=== PATIENT | female | born 1940 | race Caucasian/White ===

== ENCOUNTER 2018-07-23 10:27 | Emergency (ER) | payer MEDICARE, BC, SELFPAY ==
[2018-07-23] VITALS (8 sets, daily range): BP systolic 100–165; BP diastolic 47–86; PULSE 80–98; RESP 14–18; TEMP 37.2–38.6; O2SAT 92–100
--- NOTE | 2018-07-23 11:19 | DI.RAD.S_ITS ---
PROCEDURE: XR CHEST 1V INDICATIONS: suspected sepsis TECHNIQUE: One view of the chest was acquired. COMPARISON: [facility], CHEST 2 VIEW, 11/21/2017, 17:53. [facility], CHEST 2 VIEW, 01/07/2016, 13:02. [facility], CHEST 2 VIEW, 03/19/2014, 15:20. FINDINGS: Surgical changes and devices: None. Lungs and pleura: No pleural effusions or pneumothorax. Lungs are clear. Mediastinum: Mediastinal contours appear normal. Heart size is normal. Bones and chest wall: No suspicious bony lesions. Overlying soft tissues appear unremarkable. IMPRESSION: Normal for age, source of current symptoms is not seen. Dictated by: Brandon Jerome M.D. on 07/23/2018 at 11:53 Approved by: Brandon Jerome M.D. on 07/23/2018 at 11:53
--- NOTE | 2018-07-23 11:30 | ED.ABDPAIN ---
HPI - Abdominal Pain General Chief Complaint: Abdominal Pain Stated Complaint: ABDOMINAL PAIN Time Seen by Provider: 07/23/18 11:20 Source: patient Mode of arrival: ambulatory Limitations: no limitations History of Present Illness HPI narrative: Patient is a 78 year old female who presents with all overall not feeling well for about 1 week. 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 However she is febrile here in the ED. No nausea or vomiting. She had normal bowel movement yesterday. No fever cough or chest pain. Epigastric and right upper quadrant discomfort. She is followed at [facility] for her carcinoid which she receives an IM injection of octreotide once a month. MD complaint: abdominal pain Onset (ago): week(s) (1) Pain Consistency: constant Radiation: RUQ and epigastric Related Data Home Medications Medication Instructions Recorded Confirmed ASPIRIN (#ASPIRIN LOW DOSE) 81 mg PO QDAY #0 09/13/11 04/18/18 CHOLECALCIFEROL (VITAMIN D) 2,000 units PO SEE INSTRUCTIONS #0 01/22/13 04/18/18 OMEPRAZOLE 20 mg PO HS #0 02/07/13 04/18/18 [CALCIUM/VITAMIN D] 600 mg PO BID #0 03/15/13 04/18/18 psyllium husk (aspartame) 1 pkt PO QDAY #0 03/15/13 04/18/18 [Metamucil Fiber Singles] ferrous sulfate [Iron (ferrous 325 mg PO QDAY #0 tab 09/15/16 04/18/18 sulfate)] fexofenadine-pseudoephedrine 1 tab PO QDAYP PRN #0 03/12/18 04/18/18 [Jia-D 24 Hour] octreotide acetate 1,000 mcg/mL 100 mcg SUBCUT ONCE ml 04/18/18 04/18/18 injection solution Previous Rx's Medication Instructions Recorded estradiol [Estring] 0.0075 mg VAGINAL SEE INSTRUCTIONS 12/27/16 #1 icr glipizide 10 mg PO Q DAY #90 tab 03/29/17 levalbuterol tartrate [Xopenex HFA] 2 puff INH Q4HP PRN #15 gm 05/08/17 cetirizine 10 mg PO QDAY #90 tab 07/28/17 atenolol 50 mg PO QDAY #90 tab 12/06/17 amitriptyline 25 mg PO HS #90 tab 12/13/17 metformin [Glucophage] 850 mg PO BIDCC #180 tab 12/13/17 Lancet: Device u SEECOM SEE INSTRUCTIONS #100 12/15/17 Nebulizer: Home Unit units #1 12/20/17 albuterol sulfate 3 ml INH SEE INSTRUCTIONS #1 box 12/20/17 *B-D 3ML SYRINGE ml IM QMONTH #3 01/09/18 atorvastatin [Lipitor] 20 mg PO QDAY #90 tab 01/22/18 hydroxyzine HCl 0 PO SEE INSTRUCTIONS #25 tab 02/06/18 fluconazole [Diflucan] 150 mg PO QDAY #1 tab 02/12/18 [place] box SQ HS #100 02/19/18 fluticasone-salmeterol [Advair HFA] 2 puff INH BID #1 inh 02/21/18 montelukast [Singulair] 10 mg PO QDAY #90 tab 02/21/18 insulin detemir U-100 [Levemir 0 u SQ SEE INSTRUCTIONS #2 applic 03/05/18 FlexTouch U-100 Insuln] [Boric Acid] 600 mg VAGINAL HS #7 tab 03/12/18 nystatin 5 ml PO QIDP PRN #480 ml 03/12/18 amoxicillin-pot clavulanate 500 mg PO BID #7 tab 03/14/18 [Augmentin] fluconazole 150 mg tablet 150 mg PO ONCE #2 tab 04/02/18 fluconazole 150 mg tablet 150 mg PO QWEEK #2 tab 06/14/18 cyanocobalamin (vit B-12) 1,000 1,000 mcg IM QMONTH #3 ea 06/25/18 mcg/mL injection solution Allergies Allergy/AdvReac Type Severity Reaction Status Date / Time lisinopril [LISINOPRIL] Allergy Mild RASH Verified 04/18/18 10:46 sulfamethoxazole Allergy Mild ITCHY Verified 04/18/18 10:46 [SULFAMETHOXAZOLE] trimethoprim [TRIMETHOPRIM] Allergy Mild ITCHY Verified 04/18/18 10:46 CENTRUM SILVER MULTIVITAMIN Allergy Unknown Uncoded 03/07/18 11:57 PILL DYE AdvReac Severe ITCH Uncoded 03/07/18 11:57 Review of Systems Review of Systems All systems reviewed & are unremarkable except as noted in HPI and below Constitutional Reports body ache(s), Reports chills, Reports fever(s) and Reports malaise Eyes Denies change in vision, Denies eye discharge, Denies irritation and Denies loss of vision ENT Ears, Nose, Mouth, and Throat: Denies change in voice, Denies neck pain and Denies sore throat Cardiovascular Denies chest pain, Denies irregular heart rhythm, Denies lightheadedness, Denies palpitations, Denies dyspnea, Denies dyspnea on exertion and Denies orthopnea Respiratory Denies cough, Denies dyspnea, Denies dyspnea on exertion and Denies wheezing Gastrointestinal Gastrointestinal: Reports as per HPI Genitourinary Denies hematuria, Denies flank pain, Denies urinary incontinence and Denies urinary urgency Musculoskeletal Denies neck pain Integumentary/Breasts Denies pruritus, Denies erythema, Denies rash and Denies wounds Neurologic Denies loss of vision Endocrine Denies palpitations Allergic/Immunologic Denies wheezing PFSH Medical History Carcinoid tumor (Acute) Hyperlipidemia (Acute) Surgical History Status post breast biopsy Status post hysterectomy Status post reduction mammoplasty Family History Sister Diabetes mellitus Social History Smoking Status: Former smoker Exam Initial Vital Signs Initial Vital Signs: Vital Signs Temperature 101.4 F H 07/23/18 10:30 Pulse Rate 98 H 07/23/18 10:30 Respiratory Rate 14 07/23/18 10:30 Blood Pressure 165/72 H 07/23/18 10:30 Pulse Oximetry 98 07/23/18 10:30 GENERAL: Alert elderly female overweight no acute distress HEENT: Head atraumatic,EOMI, pupils reactive, CARDIOVASCULAR: Regular rate and rhythm without murmurs, rubs or gallops. RESPIRATORY: Breath sounds equal bilaterally, no wheezes rales or rhonchi. ABDOMEN: Soft, slightly distended epigastric pain minimal right upper quadrant pain some left upper quadrant pain guarding no rebound bowel sounds normal in all 4 quadrants : No CVA tenderness EXTREMITIES: Normal range of motion, no clubbing or edema. Neurovascularly intact NEUROLOGICAL: Alert and oriented x4.Normal gait and speech. Cranial nerves II through XII grossly intact. SKIN: Warm, dry, no laceration, no petechiae, no rashes or lesions. Scores SOFA SaO2/FIO2: 221-301 Platelets: >= 150 Bilirubin: < 1.2 mg/dL Hypotension: MAP >= 70 mmHg [place] Coma Scale: 15 Renal: < 1.2 mg/dL SOFA Score: 1 Course Orders Ordered: ED Orders 07/23/18 11:19 XR chest 1V Stat 07/23/18 11:37 Blood Culture Stat Complete Blood Count AUTO DIFF Stat Comprehensive Metabolic Panel Stat Lactate (Lactic Acid) Stat Lipase Stat Partial Thromboplastin Time Stat Pathologist Review (for CBC) Stat Procalcitonin Stat Prothrombin Time INR Stat 07/23/18 12:00 CT abdomen pelvis w con Stat 07/23/18 12:54 US abdomen complete Stat 07/23/18 15:55 Lactate 4HR (Lactic Acid Rflx) Stat Sodium Chloride (Normal Saline 0.9%) 1,000 mls @ 250 mls/hr IV CONT YESSY Last Admin: 07/23/18 18:22 Dose: 250 mls/hr Discontinued Medications Hydromorphone HCl (Dilaudid) 0.5 mg IV NOW ONE Stop: 07/23/18 18:23 Last Admin: 07/23/18 18:22 Dose: 0.5 mg Sodium Chloride (Normal Saline 0.9%) 1,000 mls @ 1,000 mls/hr IV BOLUS ONE Stop: 07/23/18 12:18 Last Infusion: 07/23/18 12:35 Dose: 0 mls/hr Admin: 07/23/18 11:41 Dose: 1,000 mls/hr Piperacillin/Tazobactam/Dextrose (Zosyn) 3.375 gm in 50 mls @ 100 mls/hr IV NOW ONE Stop: 07/23/18 13:23 Last Infusion: 07/23/18 13:40 Dose: 0 mls/hr Admin: 07/23/18 13:04 Dose: 100 mls/hr Sodium Chloride (Normal Saline 0.9%) 1,000 mls @ 1,000 mls/hr IV BOLUS ONE Stop: 07/23/18 13:52 Last Infusion: 07/23/18 14:14 Dose: 0 mls/hr Admin: 07/23/18 13:04 Dose: 1,000 mls/hr Consultations Consultation #1: Dr. Duenas, surgery at [facility] has been updated patient's symptoms test results. Based on patient's carcinoid tumors and current treatment at [facility] recommends transfer to which he may Vital Signs - 8 hr 07/23/18 12:20 07/23/18 13:55 07/23/18 15:26 Temperature 98.9 F Pulse Rate 80 83 Respiratory Rate 16 18 Blood Pressure [Right Arm] 147/47 H 100/86 H Pulse Oximetry 97 100 07/23/18 16:27 Temperature Pulse Rate 84 Respiratory Rate 14 Blood Pressure [Right Arm] 155/57 H Pulse Oximetry 94 MDM - Abdominal Pain Medical Records Attestation: I reviewed the patient's medical records. Lab Data Attestation: I reviewed the patient's lab results. Result diagrams: 07/23/18 11:37 07/23/18 11:37 Lab Results 07/23/18 07/23/18 07/23/18 Range/Units 11:37 11:37 11:37 WBC 12.6 H (4.5-11.0) X10^3/uL RBC 5.34 H (4.0-5.2) X10^6/uL Hgb 10.1 L (12.0-16.0) g/dL Hct 33.2 L (36-46) % MCV 62.2 L (80-100) fL MCH 18.9 L (26-34) PG MCHC 30.4 (30-36) % RDW 21.6 H (11.6-14.8) % Plt Count 263 (150-400) X10^3/uL Neut % (Auto) 78.3 H (50-75) % Lymph % (Auto) 11.0 L (25-40) % [place] % (Auto) 7.6 (3-14) % Eos % (Auto) 2.2 (2-4) % Baso % (Auto) 0.9 (0-2) % Neut # (Auto) 9800 H (9901-1820) /uL RBC Morphology Not Reportable Polychromasia 1+ H Poikilocytosis 3+ H Anisocytosis 2+ H Microcytosis 2+ H Ovalocytes 2+ H PT 14.8 H (10.1-12.7) SECONDS INR 1.4 H (0.9-1.3) APTT 30 (26.4-36.2) SECONDS Sodium (137-145) mmol/L Potassium (3.4-5.1) mmol/L Chloride (98-107) mmol/L Carbon Dioxide (22-32) mmol/L BUN (7-17) mg/dL Creatinine (0.52-1.04) mg/dL Estimated GFR (>60) mL/min BUN/Creatinine Ratio (6-22) Glucose (80-110) mg/dL Lactate (0.7-2.1) mmol/L Calcium (8.4-10.2) mg/dL Total Bilirubin (0.2-1.3) mg/dL AST (14-36) IU/L ALT (9-52) IU/L Alkaline Phosphatase (38-126) U/L Total Protein (6.3-8.2) g/dL Albumin (3.5-5.0) g/dL Globulin (1.7-4.1) g/dL Albumin/Globulin Ratio (1.0-2.8) Lipase (23-300) U/L Procalcitonin 0.17 (<0.5) ng/mL 07/23/18 07/23/18 07/23/18 Range/Units 11:37 11:37 15:55 WBC (4.5-11.0) X10^3/uL RBC (4.0-5.2) X10^6/uL Hgb (12.0-16.0) g/dL Hct (36-46) % MCV (80-100) fL MCH (26-34) PG MCHC (30-36) % RDW (11.6-14.8) % Plt Count (150-400) X10^3/uL Neut % (Auto) (50-75) % Lymph % (Auto) (25-40) % [place] % (Auto) (3-14) % Eos % (Auto) (2-4) % Baso % (Auto) (0-2) % Neut # (Auto) (6158-0419) /uL RBC Morphology Polychromasia Poikilocytosis Anisocytosis Microcytosis Ovalocytes PT (10.1-12.7) SECONDS INR (0.9-1.3) APTT (26.4-36.2) SECONDS Sodium 142 (137-145) mmol/L Potassium 4.4 (3.4-5.1) mmol/L Chloride 99 (98-107) mmol/L Carbon Dioxide 30 (22-32) mmol/L BUN 9 (7-17) mg/dL Creatinine 0.60 (0.52-1.04) mg/dL Estimated GFR > 60.0 (>60) mL/min BUN/Creatinine Ratio 15.0 (6-22) Glucose 232 H (80-110) mg/dL Lactate 3.4 H 2.1 (0.7-2.1) mmol/L Calcium 9.1 (8.4-10.2) mg/dL Total Bilirubin 1.0 (0.2-1.3) mg/dL AST 55 H (14-36) IU/L ALT 82 H (9-52) IU/L Alkaline Phosphatase 160 H (38-126) U/L Total Protein 6.7 (6.3-8.2) g/dL Albumin 3.9 (3.5-5.0) g/dL Globulin 2.8 (1.7-4.1) g/dL Albumin/Globulin Ratio 1.4 (1.0-2.8) Lipase 74 (23-300) U/L Procalcitonin (<0.5) ng/mL Point of care testing: Urine Dip Bedside Urine Glucose 100 mg/dl Bedside Urine Bilirubin + 1 Bedside Urine Ketone +/- 5 Urine Specific [place] 1.030 Bedside Urine pH 6.0 Bedside Urine Protein +/- 15 Bedside Urine Urobilinogen - Negative Bedside Urine Nitrite - Negative Bedside Urine Leukocytes - Negative Esterase Imaging Data Chest x-ray: Radiologist's impression: PROCEDURE: XR CHEST 1V INDICATIONS: suspected sepsis TECHNIQUE: One view of the chest was acquired. COMPARISON: [facility], CHEST 2 VIEW, 11/21/2017, 17:53. [facility], CHEST 2 VIEW, 01/07/2016, 13:02. [facility], CHEST 2 VIEW, 03/19/2014, 15:20. FINDINGS: Surgical changes and devices: None. Lungs and pleura: No pleural effusions or pneumothorax. Lungs are clear. Mediastinum: Mediastinal contours appear normal. Heart size is normal. Bones and chest wall: No suspicious bony lesions. Overlying soft tissues appear unremarkable. IMPRESSION: Normal for age, source of current symptoms is not seen. Dictated by: Brandon Jerome M.D. on 07/23/2018 at 11:53 CT scan - abdomen: Radiologist's impression: [address] [address] [address] Scan Report Signed Patient: Clarissa Granados MR#: [id number] : 1940 Acct:[id number] Age/Sex: 78 / F Date of Service: 07/23/18 Loc: ED Accession Number: [id number] Procedure: CT abdomen pelvis w con Ordering Provider: Jaki Peterson D.O. PROCEDURE: CT ABDOMEN PELVIS W CON INDICATIONS: RUQ pain and epigastric pain, hx of carcinoid of pancreas and liver TECHNIQUE: After the administration of intravenous contrast, 5 mm thick sections acquired from the diaphragm to the symphysis. 5 mm coronal and sagittal reformats were acquired. For radiation dose reduction, the following was used: automated exposure control, adjustment of mA and/or kV according to patient size. COMPARISON: [facility], CT, ABDOMEN/PELVIS WITH CONTRAST, 05/04/2009, 12:00. [facility], CT, ABDOMEN W&WO CONTRAST, 07/04/2017, 12:38. FINDINGS: Image quality: Excellent. ABDOMEN: Lung bases: Lung bases are clear. Heart size is normal. Atherosclerotic calcifications noted in the visualized cardiovascular. Mitral annulus calcification is noted. Solid organs: Liver is normal in size and enhancement. Mild, diffuse fatty infiltration of the liver. There is a 2.9 x 6.1 x 3.1 cm hypoattenuating lesion in the right lobe liver as well defined margins. There is a 2 cm in diameter hypoattenuating lesion with ill-defined margins in the caudate lobe. There is a 1.2 cm in diameter hypoattenuating lesion with ill-defined margins in the left lobe of liver. There is a 1.1 cm hypoattenuating lesion in the inferior right lobe of liver. Hepatic lesions have developed in the interval since prior CT scan obtained 07/04/2017. Gallbladder contains calcified gallstones. Biliary system is non dilated. Pancreas enhances normally. Previously identified mass involving the superior margin of the pancreatic body is identified in the current study. There are enlarged peripancreatic lymph nodes measuring size from 1.0-1.3 cm in short axis. One point Spleen is normal in size and enhancement. No adrenal nodules. Kidneys demonstrate normal size and enhancement, without hydronephrosis. Peritoneum and bowel: Small hiatal hernia. Bowel loops demonstrate normal wall thickness and caliber. No free fluid or air. Nodes and vessels: There are enlarged peripancreatic lymph nodes measuring size from 1.0-1.3 cm in short axis. 1.5 cm short axis left periaortic lymph node is noted. Multiple prominent aortocaval and pericaval retroperitoneal lymph nodes are noted which do not meet pathologic size criteria. Aorta and inferior vena cava are normal in size. Scattered atherosclerotic calcifications involving the abdominal and pelvic vasculature. Miscellaneous: No ventral hernias. PELVIS: Genitourinary: Bladder wall thickness is normal. Uterus is absent. Miscellaneous: No inguinal hernias or adenopathy. Bones: No suspicious bony lesions. No vertebral body compression fractures. Spine degenerative disc disease and facet arthropathy. IMPRESSION: 1. Interval development of multiple hypoattenuating lesions with ill-defined margins scattered throughout the liver highly suspicious for hepatic metastatic disease. 2. Enlarged peripancreatic and retroperitoneal lymph nodes highly suspicious for metastatic lymphadenopathy. 3. Cholelithiasis without CT evidence of cholecystitis. If there is clinical concern for cholecystitis, an abdominal ultrasound should be performed for further evaluation. 4. Previously described mass involving the superior margin of the pancreas is not well visualized in the current study. 5. Atherosclerosis including the visualized coronary vasculature. Dictated by: Gloria Villela MD, PhD on 07/23/2018 at 12:32 US - abdomen: Radiologist's impression: PROCEDURE: US ABDOMEN COMPLETE INDICATIONS: RIGHT UPPER QUADRANT PAIN; FEVER TECHNIQUE: Real-time scanning was performed of the abdominal and retroperitoneal organs, with image documentation. COMPARISON: [facility], CT, CT ABDOMEN PELVIS W CON, 07/23/2018, 11:55. [facility], US, ABDOMEN COMPLETE, 06/29/2017, 12:38. FINDINGS: Liver: Liver is normal in size but heterogeneous in echotexture with multiple solid masses within the liver against a hyperechoic liver echotexture consistent with otherwise fatty infiltration. The largest hepatic mass measures up to 6.5 x 4.1 x 6.4 cm. This largest lesion is located within the right hepatic lobe.. Gallbladder: There is a calculus measuring 1.4 cm that is non-mobile within the gallbladder neck. Tenderness during sonographic palpation is associated. Biliary ducts: Intrahepatic bile ducts are non-dilated. Extrahepatic bile duct caliber measures 5.4 mm. Normal is 6-7 mm or less in diameter, or 10 mm or less post-cholecystectomy. Pancreas: Visualized portions of the pancreas are sonographically normal. Spleen: Spleen is at upper limits of normal in size and homogeneous in echotexture. Kidneys: Kidneys are normal in size and echotexture. Right kidney measures 10.8 cm long; left kidney measures 12.7 cm long. No hydronephrosis or nephrolithiasis. No solid masses. Aorta: Visualized aorta is normal in caliber at less than 3 cm but seen only at the upper third with nonvisualization more inferiorly due to bowel gas.. Iliacs: Not seen due to bowel gas. IVC: Intrahepatic inferior vena cava is patent. Miscellaneous: No free abdominal fluid. IMPRESSION: Nonvisualization of the distal two thirds of the aorta and the iliac arteries due to bowel gas. Impacted gallstone within the gallbladder neck with tenderness during sonographic elevation. Early acute cholecystitis is suspected. Hepatic mass lesions present within the liver against a background of fatty infiltration. Dictated by: Brandon Jerome M.D. on 07/23/2018 at 14:03 MDM Narrative Medical decision making narrative: The patient is septic with likely acute cholecystitis. Mild leukocytosis of 12 but with elevated lactic acid and fever of 101.4. She is mildly tender in the epigastric area and minimally tender in right upper quadrant. Has received IV fluids and Zofran. Repeat lactate has improved. She has been up to the bathroom and urinated. She has remained hemodynamically stable while in the ED. 3:30PM Dr. Elizondo surgery has been updated patient's symptoms test results. A concern for acute cholecystitis based on fever and leukocytosis and elevated lactate. He has reviewed CT. Discharge Plan Departure Patient Disposition: [facility] Clinical Impression: Acute cholecystitis, Sepsis Interventions: ED Discharge Assessment Last Done: 07/23/18 16:49 Prescriptions: No Action ASPIRIN (#ASPIRIN LOW DOSE) 81 mg PO QDAY Qty: 0 RF: 0 CHOLECALCIFEROL (VITAMIN D) 2,000 units PO SEE INSTRUCTIONS Qty: 0 RF: 0 OMEPRAZOLE 20 mg PO HS Qty: 0 RF: 0 [CALCIUM/VITAMIN D] 600 mg PO BID Qty: 0 RF: 0 psyllium husk (aspartame) [Metamucil Fiber Singles] 3.4 GM powder in packet 1 pkt PO QDAY Qty: 0 RF: 0 ferrous sulfate [Iron (ferrous sulfate)] 325 MG tablet 325 mg PO QDAY Qty: 0 RF: 0 estradiol [Estring] 1 EACH ring 0.0075 mg Vaginal SEE INSTRUCTIONS Qty: 1 RF: 3 glipizide 10 MG tablet extended release 24hr 10 mg PO Q DAY Qty: 90 RF: 6 levalbuterol tartrate [Xopenex HFA] 45 MCG/INH HFA aerosol inhaler 2 puff INH Q4HP PRNQty: 15 RF: 11 cetirizine 10 MG tablet 10 mg PO QDAY Qty: 90 RF: 5 atenolol 50 MG tablet 50 mg PO QDAY Qty: 90 RF: 3 metformin [Glucophage] 850 MG tablet 850 mg PO BIDCC Qty: 180 RF: 3 amitriptyline 25 MG tablet 25 mg PO HS Qty: 90 RF: 3 Lancet: Device SEECOM SEE INSTRUCTIONS Qty: 100 RF: 11 albuterol sulfate 2.5 MG/3 ML solution for nebulization 3 ml INH SEE INSTRUCTIONS Qty: 1 RF: 5 Nebulizer: Home Unit Qty: 1 RF: 0 *B-D 3ML SYRINGE 1 SYR IM QMONTH Qty: 3 RF: 12 atorvastatin [Lipitor] 20 MG tablet 20 mg PO QDAY Qty: 90 RF: 3 hydroxyzine HCl 25 MG tablet PO SEE INSTRUCTIONS Qty: 25 RF: 1 fluconazole [Diflucan] 150 MG tablet 150 mg PO QDAY Qty: 1 RF: 1 [place] SQ HS Qty: 100 RF: 11 montelukast [Singulair] 10 MG tablet 10 mg PO QDAY Qty: 90 RF: 3 fluticasone-salmeterol [Advair HFA] 230 MCG/21 MCG HFA aerosol inhaler 2 puff INH BID Qty: 1 RF: 11 insulin detemir U-100 [Levemir FlexTouch U-100 Insuln] 100 UNIT/1 ML insulin pen SQ SEE INSTRUCTIONS Qty: 2 RF: 11 fexofenadine-pseudoephedrine [Jia-D 24 Hour] 180 MG/240 MG tablet extended release 24 hr 1 tab PO QDAYP PRNQty: 0 RF: 0 nystatin 100,000 UNIT/1 ML suspension 5 ml PO QIDP PRNQty: 480 RF: 3 [Boric Acid] 600 mg Vaginal HS Qty: 7 RF: 0 amoxicillin-pot clavulanate [Augmentin] 500 MG/125 MG tablet 500 mg PO BID Qty: 7 RF: 0 fluconazole [Diflucan] 150 mg tablet 150 mg PO ONCE Qty: 2 RF: 0 fluconazole [Diflucan] 150 mg tablet 150 mg PO QWEEK Qty: 2 RF: 0 cyanocobalamin (vitamin B-12) 1,000 mcg/mL solution 1,000 mcg IM QMONTH Qty: 3 RF: 3 octreotide acetate 1,000 mcg/mL solution 100 mcg SUBCUT ONCE RF: 0
[2018-07-23] MEDS: SODIUM CHLORIDE 0.9% 1,000 ML 1000 ML IV ×2 (11:41→13:04)
[2018-07-23 11:47] LABS: Add Manual Diff / Slide Review SLIDE REVIEW; Basophils Percent Auto 0.9 % (0-2); Eosinophils Percent Auto 2.2 % (2-4); Hematocrit 33.2 % (36-46); Hemoglobin 10.1 g/dL (12.0-16.0); Mean Corpuscular HGB Conc 30.4 % (30-36); Mean Corpuscular Hemoglobin 18.9 PG (26-34); Mean Corpuscular Volume 62.2 fL (80-100); Monocytes Percent Auto 7.6 % (3-14); Neutrophils Absolute Auto 9800 /uL (3000-5900); Neutrophils Percent Auto 78.3 % (50-75); Platelet Count 263 X10^3/uL (150-400); Red Blood Cell Count 5.34 X10^6/uL (4.0-5.2); Red Cell Distribution Width 21.6 % (11.6-14.8); White Blood Cell Count 12.6 X10^3/uL (4.5-11.0)
[2018-07-23 11:50] LABS: INR 1.4 (0.9-1.3); Prothrombin Time 14.8 SECONDS (10.1-12.7)
[2018-07-23 11:53] LABS: PTT Partial Thromboplastin Tim 30 SECONDS (26.4-36.2)
[2018-07-23 11:55] LABS: Alanine Aminotransferase 82 IU/L (9-52); Albumin 3.9 g/dL (3.5-5.0); Albumin Globulin Ratio 1.4 (1.0-2.8); Alkaline Phosphatase 160 U/L (38-126); Aspartate Aminotransferase 55 IU/L (14-36); Blood Urea Nitrogen 9 mg/dL (7-17); Calcium 9.1 mg/dL (8.4-10.2); Carbon Dioxide 30 mmol/L (22-32); Chloride 99 mmol/L (98-107); Estimated Glomerular Filt Rate > 60.0 mL/min (>60); Globulin 2.8 g/dL (1.7-4.1); Glucose 232 mg/dL (80-110); HEMOLYSIS < 15 (0-50); Lipase 74 U/L (23-300); Potassium 4.4 mmol/L (3.4-5.1); Sodium 142 mmol/L (137-145); Total Protein 6.7 g/dL (6.3-8.2)
[2018-07-23 11:56] LABS: Lactate (Lactic Acid) 3.4 mmol/L (0.7-2.1)
--- NOTE | 2018-07-23 12:00 | DI.CT.S_ITS ---
PROCEDURE: CT ABDOMEN PELVIS W CON INDICATIONS: RUQ pain and epigastric pain, hx of carcinoid of pancreas and liver TECHNIQUE: After the administration of intravenous contrast, 5 mm thick sections acquired from the diaphragm to the symphysis. 5 mm coronal and sagittal reformats were acquired. For radiation dose reduction, the following was used: automated exposure control, adjustment of mA and/or kV according to patient size. COMPARISON: [facility], CT, ABDOMEN/PELVIS WITH CONTRAST, 05/04/2009, 12:00. [facility], CT, ABDOMEN W&WO CONTRAST, 07/04/2017, 12:38. FINDINGS: Image quality: Excellent. ABDOMEN: Lung bases: Lung bases are clear. Heart size is normal. Atherosclerotic calcifications noted in the visualized cardiovascular. Mitral annulus calcification is noted. Solid organs: Liver is normal in size and enhancement. Mild, diffuse fatty infiltration of the liver. There is a 2.9 x 6.1 x 3.1 cm hypoattenuating lesion in the right lobe liver as well defined margins. There is a 2 cm in diameter hypoattenuating lesion with ill-defined margins in the caudate lobe. There is a 1.2 cm in diameter hypoattenuating lesion with ill-defined margins in the left lobe of liver. There is a 1.1 cm hypoattenuating lesion in the inferior right lobe of liver. Hepatic lesions have developed in the interval since prior CT scan obtained 07/04/2017. Gallbladder contains calcified gallstones. Biliary system is non dilated. Pancreas enhances normally. Previously identified mass involving the superior margin of the pancreatic body is identified in the current study. There are enlarged peripancreatic lymph nodes measuring size from 1.0-1.3 cm in short axis. One point Spleen is normal in size and enhancement. No adrenal nodules. Kidneys demonstrate normal size and enhancement, without hydronephrosis. Peritoneum and bowel: Small hiatal hernia. Bowel loops demonstrate normal wall thickness and caliber. No free fluid or air. Nodes and vessels: There are enlarged peripancreatic lymph nodes measuring size from 1.0-1.3 cm in short axis. 1.5 cm short axis left periaortic lymph node is noted. Multiple prominent aortocaval and pericaval retroperitoneal lymph nodes are noted which do not meet pathologic size criteria. Aorta and inferior vena cava are normal in size. Scattered atherosclerotic calcifications involving the abdominal and pelvic vasculature. Miscellaneous: No ventral hernias. PELVIS: Genitourinary: Bladder wall thickness is normal. Uterus is absent. Miscellaneous: No inguinal hernias or adenopathy. Bones: No suspicious bony lesions. No vertebral body compression fractures. Spine degenerative disc disease and facet arthropathy. IMPRESSION: 1. Interval development of multiple hypoattenuating lesions with ill-defined margins scattered throughout the liver highly suspicious for hepatic metastatic disease. 2. Enlarged peripancreatic and retroperitoneal lymph nodes highly suspicious for metastatic lymphadenopathy. 3. Cholelithiasis without CT evidence of cholecystitis. If there is clinical concern for cholecystitis, an abdominal ultrasound should be performed for further evaluation. 4. Previously described mass involving the superior margin of the pancreas is not well visualized in the current study. 5. Atherosclerosis including the visualized coronary vasculature. Dictated by: Gloria Villela MD, PhD on 07/23/2018 at 12:32 Approved by: Gloria Villela MD, PhD on 07/23/2018 at 12:44
[2018-07-23 12:11] LABS: Procalcitonin 0.17 ng/mL (<0.5)
--- NOTE | 2018-07-23 12:54 | DI.US.S_ITS ---
PROCEDURE: US ABDOMEN COMPLETE INDICATIONS: RIGHT UPPER QUADRANT PAIN; FEVER TECHNIQUE: Real-time scanning was performed of the abdominal and retroperitoneal organs, with image documentation. COMPARISON: [facility], CT, CT ABDOMEN PELVIS W CON, 07/23/2018, 11:55. [facility], US, ABDOMEN COMPLETE, 06/29/2017, 12:38. FINDINGS: Liver: Liver is normal in size but heterogeneous in echotexture with multiple solid masses within the liver against a hyperechoic liver echotexture consistent with otherwise fatty infiltration. The largest hepatic mass measures up to 6.5 x 4.1 x 6.4 cm. This largest lesion is located within the right hepatic lobe.. Gallbladder: There is a calculus measuring 1.4 cm that is non-mobile within the gallbladder neck. Tenderness during sonographic palpation is associated. Biliary ducts: Intrahepatic bile ducts are non-dilated. Extrahepatic bile duct caliber measures 5.4 mm. Normal is 6-7 mm or less in diameter, or 10 mm or less post-cholecystectomy. Pancreas: Visualized portions of the pancreas are sonographically normal. Spleen: Spleen is at upper limits of normal in size and homogeneous in echotexture. Kidneys: Kidneys are normal in size and echotexture. Right kidney measures 10.8 cm long; left kidney measures 12.7 cm long. No hydronephrosis or nephrolithiasis. No solid masses. Aorta: Visualized aorta is normal in caliber at less than 3 cm but seen only at the upper third with nonvisualization more inferiorly due to bowel gas.. Iliacs: Not seen due to bowel gas. IVC: Intrahepatic inferior vena cava is patent. Miscellaneous: No free abdominal fluid. IMPRESSION: Nonvisualization of the distal two thirds of the aorta and the iliac arteries due to bowel gas. Impacted gallstone within the gallbladder neck with tenderness during sonographic elevation. Early acute cholecystitis is suspected. Hepatic mass lesions present within the liver against a background of fatty infiltration. Dictated by: Brandon Jerome M.D. on 07/23/2018 at 14:03 Approved by: Brandon Jerome M.D. on 07/23/2018 at 14:07
[2018-07-23 13:01] LABS: Anisocytosis 2+; Microcytosis 2+; Poikilocytosis 3+; Polychromasia 1+
[2018-07-23 13:02] LABS: Ovalocytes 2+
[2018-07-23] MEDS: PIPERACILLIN-TAZO 3.375 GM/50 ML FROZ.PIGGY IV (13:04)
[2018-07-23 15:42] LABS: Reflexed Lactate in 2 Hours Y
[2018-07-23 16:15] LABS: Lactate 2HR (Lactic Acid Rflx) 2.1 mmol/L (0.7-2.1)
[2018-07-23] MEDS: SODIUM CHLORIDE 0.9% 1,000 ML 250 ML IV (18:22)
[2018-07-23] MEDS: HYDROMORPHONE 1 MG INJ 0.5 MG IV ×2 (18:22→19:22)
[2018-07-23] MEDS: ONDANSETRON 4 MG/2 ML INJ IV (19:22)
== END 2018-07-23 19:32 | disposition short-term general hospital (02) ==
PROVIDERS: Emergency Provider Emergency Medicine; PCP Internal Medicine
DX: K81.0 Acute cholecystitis (principal); A41.9 Sepsis, unspecified organism
CPT/HCPCS: 36415; 36591; 71045; 74177; 76700; 80053; 81003; 83605; 83690; 84145; 85025; 85610; 85730; 87040; 96361; 96365; 96375; 96376; 99285; J1170; J2405; J2543; Q9967

== ENCOUNTER 2018-08-08 20:18 | Emergency (ER) | payer MEDICARE, BC, SELFPAY ==
[2018-08-08 20:30] VITALS: BP 189/85; PULSE 113; RESP 20; TEMP 36.1; O2SAT 98; BMI 28.3
--- NOTE | 2018-08-08 20:48 | DI.RAD.S_ITS ---
PROCEDURE: XR ACUTE ABDOMEN SERIES INDICATIONS: severe abdominal pain TECHNIQUE: One view chest and two views of the abdomen were acquired. COMPARISON: [facility], CT, CT ABDOMEN PELVIS W CON, 07/23/2018, 11:55. FINDINGS: Surgical changes and devices: 2 1.0 cm radiopaque densities projecting over the right lower quadrant of the abdomen. Chest: Lungs are clear. Heart size is normal. No pleural effusions. No pneumoperitoneum. Abdomen: There is a paucity of bowel gas. Hepatic silhouette appears enlarged, with the inferior tip of the right hepatic lobe projecting over the right iliac wing. Diffuse hazy opacification of the abdomen may represent ascites. Bones: No suspicious bony lesions. IMPRESSION: #1. Apparent enlargement of the hepatic silhouette, which may be projectional or may represent hepatomegaly. #2. 1.0 cm densities projecting over the right lower quadrant of the abdomen may represent intra-abdominal calcifications or be external to the patient. #3. Paucity of small bowel gas, which may be a normal finding or can be seen with fluid filled loops of bowel from enteritis. Dictated by: Dev Santos M.D. on 08/08/2018 at 22:20 Approved by: Dev Santos M.D. on 08/08/2018 at 22:25
[2018-08-08] MEDS: PANTOPRAZOLE 40 MG VIAL IV (21:02)
[2018-08-08] MEDS: ONDANSETRON 4 MG/2 ML INJ IV (21:02)
[2018-08-08 21:03] LABS: INR 2.9 (0.9-1.3); Prothrombin Time 31.4 SECONDS (10.1-12.7)
[2018-08-08 21:06] LABS: PTT Partial Thromboplastin Tim 30 SECONDS (26.4-36.2)
[2018-08-08 21:09] LABS: Hemoglobin 10.4 g/dL (12.0-16.0)
[2018-08-08 21:10] LABS: Alanine Aminotransferase 59 IU/L (9-52); Albumin 3.5 g/dL (3.5-5.0); Albumin Globulin Ratio 1.1 (1.0-2.8); Alkaline Phosphatase 254 U/L (38-126); Aspartate Aminotransferase 60 IU/L (14-36); BUN Creatinine Ratio 26.7 (6-22); Bilirubin Total 4.8 mg/dL (0.2-1.3); Blood Urea Nitrogen 16 mg/dL (7-17); Calcium 10.2 mg/dL (8.4-10.2); Carbon Dioxide 22 mmol/L (22-32); Chloride 90 mmol/L (98-107); Estimated Glomerular Filt Rate > 60.0 mL/min (>60); Globulin 3.3 g/dL (1.7-4.1); Glucose 433 mg/dL (80-110); HEMOLYSIS < 15 (0-50); Potassium 4.4 mmol/L (3.4-5.1); Sodium 132 mmol/L (137-145); Total Protein 6.8 g/dL (6.3-8.2)
[2018-08-08 21:12] LABS: Alanine Aminotransferase 58 IU/L (9-52); Albumin 3.5 g/dL (3.5-5.0); Albumin Globulin Ratio 1.1 (1.0-2.8); Alkaline Phosphatase 259 U/L (38-126); Aspartate Aminotransferase 59 IU/L (14-36); Bilirubin Conjugated 1.9 md/dL (0.0-0.3); Bilirubin Total 4.8 mg/dL (0.2-1.3); Globulin 3.2 g/dL (1.7-4.1); HEMOLYSIS < 15 (0-50); Total Protein 6.7 g/dL (6.3-8.2)
[2018-08-08 21:14] LABS: Basophils Percent Auto 0.6 % (0-2); Eosinophils Percent Auto 0.3 % (2-4); Hematocrit 34.3 % (36-46); Lymphocytes Percent Auto 5.1 % (25-40); Mean Corpuscular HGB Conc 30.2 % (30-36); Mean Corpuscular Hemoglobin 18.7 PG (26-34); Monocytes Percent Auto 8.5 % (3-14); Neutrophils Absolute Auto 14500 /uL (3000-5900); Neutrophils Percent Auto 85.5 % (50-75); Platelet Count 445 X10^3/uL (150-400); Red Blood Cell Count 5.53 X10^6/uL (4.0-5.2); Red Cell Distribution Width 22.1 % (11.6-14.8); White Blood Cell Count 16.9 X10^3/uL (4.5-11.0)
[2018-08-08] MEDS: HYDROMORPHONE 1 MG INJ IV (21:14)
[2018-08-08 21:19] LABS: Add Manual Diff / Slide Review SLIDE REVIEW
--- NOTE | 2018-08-08 21:24 | ED.GIBLEED ---
HPI - GI Bleed General Chief complaint: GI Bleed Stated complaint: BLACK STOOLS, CANCER PATIENT Time Seen by Provider: 08/08/18 20:30 Source: patient and family Mode of arrival: ambulatory Limitations: no limitations History of Present Illness HPI Narrative: 78-year-old female with history of pancreatic cancer receiving octreotide presents with a chief complaint of an episode of coffee-ground emesis with dark install tarsi stools prior to her arrival. The the she denies multiple episodes of vomiting leading to the coffee grounds, denies any history of the same. She feels fatigued and a bit lightheaded. She denies any history of upper GI bleed and had her most recent EGD a few weeks ago at without abnormal findings. Patient denies any history of anticoagulation, frequent ibuprofen use or known ulcers, varices or other. She was recently admitted at [facility] for abdominal pain and possible cholecystitis. She admits to epigastric pain without provocation, palliation or radiation. Her pancreatic cancer has metastasized to her liver. She denies any history of alcohol MD complaint: coffee ground emesis and melena Onset (ago): hour(s) Pain Consistency: constant Severity: moderate Relieving factors: none Exacerbating factors: none Context: liver disease Associated symptoms: abdominal pain, nausea and vomiting Related Data Home Medications Medication Instructions Recorded Confirmed ASPIRIN (#ASPIRIN LOW DOSE) 81 mg PO QDAY #0 09/13/11 08/06/18 CHOLECALCIFEROL (VITAMIN D) 2,000 units PO SEE INSTRUCTIONS #0 01/22/13 08/06/18 OMEPRAZOLE 20 mg PO HS #0 02/07/13 08/06/18 [CALCIUM/VITAMIN D] 600 mg PO BID #0 03/15/13 08/06/18 psyllium husk (aspartame) 1 pkt PO QDAY #0 03/15/13 08/06/18 [Metamucil Fiber Singles] ferrous sulfate [Iron (ferrous 325 mg PO QDAY #0 tab 09/15/16 04/18/18 sulfate)] fexofenadine-pseudoephedrine 1 tab PO QDAYP PRN #0 03/12/18 08/06/18 [Jia-D 24 Hour] octreotide acetate 1,000 mcg/mL 100 mcg SUBCUT ONCE ml 04/18/18 08/06/18 injection solution oxycodone 5 mg capsule 5 mg PO Q4-6H PRN 08/06/18 08/06/18 Previous Rx's Medication Instructions Recorded levalbuterol tartrate [Xopenex HFA] 2 puff INH Q4HP PRN #15 gm 05/08/17 cetirizine 10 mg PO QDAY #90 tab 07/28/17 atenolol 50 mg PO QDAY #90 tab 12/06/17 amitriptyline 25 mg PO HS #90 tab 12/13/17 metformin [Glucophage] 850 mg PO BIDCC #180 tab 12/13/17 Lancet: Device u SEECOM SEE INSTRUCTIONS #100 12/15/17 Nebulizer: Home Unit units #1 12/20/17 albuterol sulfate 3 ml INH SEE INSTRUCTIONS #1 box 12/20/17 *B-D 3ML SYRINGE ml IM QMONTH #3 01/09/18 atorvastatin [Lipitor] 20 mg PO QDAY #90 tab 01/22/18 fluconazole [Diflucan] 150 mg PO QDAY #1 tab 02/12/18 [place] box SQ HS #100 02/19/18 fluticasone-salmeterol [Advair HFA] 2 puff INH BID #1 inh 02/21/18 montelukast [Singulair] 10 mg PO QDAY #90 tab 02/21/18 insulin detemir U-100 [Levemir 0 u SQ SEE INSTRUCTIONS #2 applic 03/05/18 FlexTouch U-100 Insuln] nystatin 5 ml PO QIDP PRN #480 ml 03/12/18 fluconazole 150 mg tablet 150 mg PO ONCE #2 tab 04/02/18 fluconazole 150 mg tablet 150 mg PO QWEEK #2 tab 06/14/18 cyanocobalamin (vit B-12) 1,000 1,000 mcg IM QMONTH #3 ea 06/25/18 mcg/mL injection solution oxycodone 5 mg tablet 10 mg PO Q6H PRN #30 tab 08/06/18 Allergies Allergy/AdvReac Type Severity Reaction Status Date / Time lisinopril [LISINOPRIL] Allergy Mild RASH Verified 08/06/18 11:24 sulfamethoxazole Allergy Mild ITCHY Verified 08/06/18 11:24 [SULFAMETHOXAZOLE] trimethoprim [TRIMETHOPRIM] Allergy Mild ITCHY Verified 08/06/18 11:24 CENTRUM SILVER MULTIVITAMIN Allergy Unknown Uncoded 08/06/18 11:24 PILL DYE AdvReac Severe ITCH Uncoded 08/06/18 11:24 Review of Systems Review of Systems All systems reviewed & are unremarkable except as noted in HPI and below Constitutional Denies chills, Denies fever(s), Denies lethargy and Reports weakness Eyes Denies change in vision, Denies eye discharge, Denies irritation and Denies loss of vision ENT Ears, Nose, Mouth, and Throat: Denies change in voice, Denies neck pain and Denies sore throat Cardiovascular Denies chest pain, Denies irregular heart rhythm, Denies lightheadedness, Denies palpitations, Denies dyspnea, Denies dyspnea on exertion and Denies orthopnea Respiratory Denies cough, Denies dyspnea, Denies dyspnea on exertion and Denies wheezing Gastrointestinal Gastrointestinal: Reports abdominal pain, Reports melena, Reports change in bowel habits, Reports coffee ground emesis, Denies diarrhea, Reports nausea and Reports vomiting Genitourinary Denies hematuria, Denies flank pain, Denies urinary incontinence and Denies urinary urgency Musculoskeletal Denies neck pain Integumentary/Breasts Denies pruritus, Denies erythema, Denies rash and Denies wounds Neurologic Denies confusion, Denies loss of vision and Reports weakness Psychiatric Denies anxiety, Denies confusion, Denies depression, Denies homicidal ideation and Denies suicidal ideation Endocrine Denies palpitations Hematologic/Lymphatic Denies easy bruising Allergic/Immunologic Denies wheezing PFSH Medical History Carcinoid tumor (Acute) Hyperlipidemia (Acute) Surgical History Status post breast biopsy Status post hysterectomy Status post reduction mammoplasty Family History Sister Diabetes mellitus Social History Smoking Status: Former smoker Exam Narrative Exam Narrative: 78-year-old female obviously uncomfortable, lying on her side, clutching her abdomen Initial Vital Signs Initial Vital Signs: Vital Signs Temperature 96.9 F L 08/08/18 20:30 Pulse Rate 113 H 08/08/18 20:30 Respiratory Rate 20 08/08/18 20:30 Blood Pressure 189/85 H 08/08/18 20:30 Pulse Oximetry 98 08/08/18 20:30 Const General: cooperative, well developed and acute distress Nutritional Appearance: well nourished Orientation: alert, awake, oriented x3 and not confused [facility] Head: normocephalic and atraumatic Ears: external ears normal and TM's normal bilaterally Nose: external nose normal and No nasal discharge Face and sinus: sinuses nontender, face symmetric, no sinus tenderness and No dry mucous membranes Mouth: oral mucosae normal and moist mucous membranes Teeth and gingiva: dentition normal Throat: tonsils normal and uvula midline Eyes General: appearance normal, both eyes and all related structures Eyelids: eyelids normal Conjunctivae: conjunctivae normal Sclera: sclerae normal Pupils: PERRL EOM: EOM intact bilaterally Neck Neck: normal visual inspection, trachea midline, No lymphadenopathy, No midline deformity and No JVD Lymphatic: No lymphedema Resp Effort & Inspection: normal respiratory effort, able to speak in complete sentences, no respiratory distress and no use of accessory muscles Auscultation: clear to auscultation bilaterally, no rales, no rhonchi and no wheezes Cardio Rate: tachycardic Rhythm: regular rhythm GI Inspection: non-distended Palpation: soft, no hepatosplenomegaly, No guarding, No pulsatile mass, tender and ascites Auscultation: normal bowel sounds Rectal Exam: visual inspection normal and heme positive stool Back/Spine/Pelvis Back: No CVA tenderness Cervical Spine: cervical ROM normal and No pain with cervical ROM Thoracic/Lumbar Spine: thoracic and lumbar spine normal to inspection Skin General: no rashes or lesions noted, No jaundice and No petechiae Extrem General: full ROM, no clubbing, cyanosis or edema, no pedal edema and no calf tenderness Psych Appearance: well kempt Mental Status: mental status grossly normal Attitude: cooperative Thought Content: normal and suicidality Judgment: judgment good Course Orders Ordered: ED Orders 08/08/18 20:30 Complete Blood Count AUTO DIFF Stat Comprehensive Metabolic Panel Stat Hepatic (Liver) Panel Stat Partial Thromboplastin Time Stat Prothrombin Time INR Stat Type and Screen Stat 08/08/18 20:48 XR acute abdomen series Stat 08/08/18 21:06 Ammonia (NH3) Stat Discontinued Medications Hydromorphone HCl (Dilaudid) 1 mg IV NOW ONE Stop: 08/08/18 21:25 Last Admin: 08/08/18 21:14 Dose: 1 mg Sodium Chloride (Normal Saline 0.9%) 1,000 mls @ 1,000 mls/hr IV BOLUS ONE Stop: 08/09/18 00:53 Last Infusion: 08/09/18 01:33 Dose: 0 mls/hr Admin: 08/09/18 00:18 Dose: 1,000 mls/hr Metoclopramide HCl (Reglan) 10 mg IV NOW ONE Stop: 08/08/18 21:26 Last Admin: 08/08/18 21:40 Dose: 10 mg Ondansetron HCl (Zofran) 4 mg IV NOW ONE Stop: 08/08/18 20:44 Last Admin: 08/08/18 21:02 Dose: 4 mg Pantoprazole Sodium (Protonix) 40 mg IV NOW ONE Stop: 08/08/18 20:44 Last Admin: 08/08/18 21:02 Dose: 40 mg Reevaluation(s) Reevaluation #1: Patient feeling better after above-stated pain and anti nausea meds. Consultations Consultation #1: The discussion with our hospitalist regarding this patient and we sure the opinion that given her complex medical history and recent hospitalization elsewhere that this is not the appropriate facility to further evaluate for upper GI bleed Vital Signs - 8 hr 08/08/18 21:53 08/08/18 22:44 08/08/18 23:08 Temperature Pulse Rate 115 H 117 H 118 H Respiratory Rate 17 21 18 Blood Pressure [Right Arm] 196/71 H 182/61 H 186/67 H Pulse Oximetry 96 97 97 08/09/18 00:56 08/09/18 02:08 08/09/18 03:17 Temperature 98.2 F Pulse Rate 116 H 112 H 110 H Respiratory Rate 16 18 18 Blood Pressure [Right Arm] 176/57 H 161/67 H 123/78 Pulse Oximetry 95 95 95 08/09/18 03:58 08/09/18 05:04 Temperature Pulse Rate 105 H 119 H Respiratory Rate 23 23 Blood Pressure [Right Arm] 147/47 H 181/81 H Pulse Oximetry 97 95 MDM - GI Bleed Lab Data Result diagrams: 08/08/18 20:30 08/08/18 20:30 Lab Results 08/08/18 08/08/18 08/08/18 Range/Units 20:30 20:30 20:30 WBC 16.9 H (4.5-11.0) X10^3/uL RBC 5.53 H (4.0-5.2) X10^6/uL Hgb 10.4 L (12.0-16.0) g/dL Hct 34.3 L (36-46) % MCV 62.0 L (80-100) fL MCH 18.7 L (26-34) PG MCHC 30.2 (30-36) % RDW 22.1 H (11.6-14.8) % Plt Count 445 H (150-400) X10^3/uL Neut % (Auto) 85.5 H (50-75) % Lymph % (Auto) 5.1 L (25-40) % [place] % (Auto) 8.5 (3-14) % Eos % (Auto) 0.3 L (2-4) % Baso % (Auto) 0.6 (0-2) % Neut # (Auto) 51321 H (0532-7910) /uL Plt Morphology Comment 1+ RBC Morphology Not Reportable Polychromasia 1+ H Poikilocytosis 3+ H Anisocytosis 2+ H Microcytosis 2+ H Ovalocytes 2+ H PT 31.4 H (10.1-12.7) SECONDS INR 2.9 H (0.9-1.3) APTT 30 (26.4-36.2) SECONDS Sodium 132 L (137-145) mmol/L Potassium 4.4 (3.4-5.1) mmol/L Chloride 90 L (98-107) mmol/L Carbon Dioxide 22 (22-32) mmol/L BUN 16 (7-17) mg/dL Creatinine 0.60 (0.52-1.04) mg/dL Estimated GFR > 60.0 (>60) mL/min BUN/Creatinine Ratio 26.7 H (6-22) Glucose 433 H (80-110) mg/dL Calcium 10.2 (8.4-10.2) mg/dL Total Bilirubin 4.8 H (0.2-1.3) mg/dL Conjugated Bilirubin (0.0-0.3) md/dL Unconjugated Bilirubin (0.0-1.1) mg/dL AST 60 H (14-36) IU/L ALT 59 H (9-52) IU/L Alkaline Phosphatase 254 H (38-126) U/L Ammonia (9-30) umol/L Total Protein 6.8 (6.3-8.2) g/dL Albumin 3.5 (3.5-5.0) g/dL Globulin 3.3 (1.7-4.1) g/dL Albumin/Globulin Ratio 1.1 (1.0-2.8) Blood Type Antibody Screen 08/08/18 08/08/18 08/08/18 Range/Units 20:30 20:30 21:06 WBC (4.5-11.0) X10^3/uL RBC (4.0-5.2) X10^6/uL Hgb (12.0-16.0) g/dL Hct (36-46) % MCV (80-100) fL MCH (26-34) PG MCHC (30-36) % RDW (11.6-14.8) % Plt Count (150-400) X10^3/uL Neut % (Auto) (50-75) % Lymph % (Auto) (25-40) % [place] % (Auto) (3-14) % Eos % (Auto) (2-4) % Baso % (Auto) (0-2) % Neut # (Auto) (4050-0507) /uL Plt Morphology Comment RBC Morphology Polychromasia Poikilocytosis Anisocytosis Microcytosis Ovalocytes PT (10.1-12.7) SECONDS INR (0.9-1.3) APTT (26.4-36.2) SECONDS Sodium (137-145) mmol/L Potassium (3.4-5.1) mmol/L Chloride (98-107) mmol/L Carbon Dioxide (22-32) mmol/L BUN (7-17) mg/dL Creatinine (0.52-1.04) mg/dL Estimated GFR (>60) mL/min BUN/Creatinine Ratio (6-22) Glucose (80-110) mg/dL Calcium (8.4-10.2) mg/dL Total Bilirubin 4.8 H (0.2-1.3) mg/dL Conjugated Bilirubin 1.9 H (0.0-0.3) md/dL Unconjugated Bilirubin 1.0 (0.0-1.1) mg/dL AST 59 H (14-36) IU/L ALT 58 H (9-52) IU/L Alkaline Phosphatase 259 H (38-126) U/L Ammonia 26.0 (9-30) umol/L Total Protein 6.7 (6.3-8.2) g/dL Albumin 3.5 (3.5-5.0) g/dL Globulin 3.2 (1.7-4.1) g/dL Albumin/Globulin Ratio 1.1 (1.0-2.8) Blood Type A Positive Antibody Screen Negative Discharge Plan Departure Patient Disposition: Xfer [facility] Interventions: ED Discharge Assessment Last Done: 08/09/18 03:10 Prescriptions: No Action ASPIRIN (#ASPIRIN LOW DOSE) 81 mg PO QDAY Qty: 0 RF: 0 CHOLECALCIFEROL (VITAMIN D) 2,000 units PO SEE INSTRUCTIONS Qty: 0 RF: 0 OMEPRAZOLE 20 mg PO HS Qty: 0 RF: 0 [CALCIUM/VITAMIN D] 600 mg PO BID Qty: 0 RF: 0 psyllium husk (aspartame) [Metamucil Fiber Singles] 3.4 GM powder in packet 1 pkt PO QDAY Qty: 0 RF: 0 ferrous sulfate [Iron (ferrous sulfate)] 325 MG tablet 325 mg PO QDAY Qty: 0 RF: 0 levalbuterol tartrate [Xopenex HFA] 45 MCG/INH HFA aerosol inhaler 2 puff INH Q4HP PRNQty: 15 RF: 11 cetirizine 10 MG tablet 10 mg PO QDAY Qty: 90 RF: 5 atenolol 50 MG tablet 50 mg PO QDAY Qty: 90 RF: 3 metformin [Glucophage] 850 MG tablet 850 mg PO BIDCC Qty: 180 RF: 3 amitriptyline 25 MG tablet 25 mg PO HS Qty: 90 RF: 3 Lancet: Device SEECOM SEE INSTRUCTIONS Qty: 100 RF: 11 albuterol sulfate 2.5 MG/3 ML solution for nebulization 3 ml INH SEE INSTRUCTIONS Qty: 1 RF: 5 Nebulizer: Home Unit Qty: 1 RF: 0 *B-D 3ML SYRINGE 1 SYR IM QMONTH Qty: 3 RF: 12 atorvastatin [Lipitor] 20 MG tablet 20 mg PO QDAY Qty: 90 RF: 3 fluconazole [Diflucan] 150 MG tablet 150 mg PO QDAY Qty: 1 RF: 1 [place] SQ HS Qty: 100 RF: 11 montelukast [Singulair] 10 MG tablet 10 mg PO QDAY Qty: 90 RF: 3 fluticasone-salmeterol [Advair HFA] 230 MCG/21 MCG HFA aerosol inhaler 2 puff INH BID Qty: 1 RF: 11 insulin detemir U-100 [Levemir FlexTouch U-100 Insuln] 100 UNIT/1 ML insulin pen SQ SEE INSTRUCTIONS Qty: 2 RF: 11 fexofenadine-pseudoephedrine [Jia-D 24 Hour] 180 MG/240 MG tablet extended release 24 hr 1 tab PO QDAYP PRNQty: 0 RF: 0 nystatin 100,000 UNIT/1 ML suspension 5 ml PO QIDP PRNQty: 480 RF: 3 fluconazole [Diflucan] 150 mg tablet 150 mg PO ONCE Qty: 2 RF: 0 fluconazole [Diflucan] 150 mg tablet 150 mg PO QWEEK Qty: 2 RF: 0 cyanocobalamin (vitamin B-12) 1,000 mcg/mL solution 1,000 mcg IM QMONTH Qty: 3 RF: 3 oxycodone 5 mg capsule 5 mg PO Q4-6H PRNRF: 0 oxycodone 5 mg tablet 10 mg PO Q6H PRN (Reason: pain) Qty: 30 RF: 0 octreotide acetate 1,000 mcg/mL solution 100 mcg SUBCUT ONCE RF: 0
[2018-08-08] MEDS: METOCLOPRAMIDE 10 MG/2 ML INJ IV (21:40)
[2018-08-08 21:41] LABS: Poikilocytosis 3+
[2018-08-08 21:42] LABS: Anisocytosis 2+; Microcytosis 2+; Ovalocytes 2+
[2018-08-08 21:43] LABS: Polychromasia 1+
[2018-08-08 21:45] LABS: Platelet Morphology Comment 1+
[2018-08-08 21:53] VITALS: BP 196/71; PULSE 115; RESP 17; O2SAT 96
[2018-08-08 22:44] VITALS: BP 182/61; PULSE 117; RESP 21; O2SAT 97
[2018-08-08 23:08] VITALS: BP 186/67; PULSE 118; RESP 18; O2SAT 97
[2018-08-09] MEDS: SODIUM CHLORIDE 0.9% 1,000 ML 1000 ML IV (00:18)
[2018-08-09 00:56] VITALS: BP 176/57; PULSE 116; RESP 16; TEMP 36.8; O2SAT 95
[2018-08-09 02:08] VITALS: BP 161/67; PULSE 112; RESP 18; O2SAT 95
[2018-08-09 03:17] VITALS: BP 123/78; PULSE 110; RESP 18; O2SAT 95
[2018-08-09 03:58] VITALS: BP 147/47; PULSE 105; RESP 23; O2SAT 97
[2018-08-09 05:04] VITALS: BP 181/81; PULSE 119; RESP 23; O2SAT 95
[2018-08-09] MEDS: HYDROMORPHONE 1 MG INJ IV (05:38)
== END 2018-08-09 05:50 | disposition short-term general hospital (02) ==
PROVIDERS: Emergency Provider Emergency Medicine; PCP Internal Medicine
DX: R19.5 Other fecal abnormalities (principal); Z85.07 Personal history of malignant neoplasm of pancreas
CPT/HCPCS: 36415; 36591; 74022; 80053; 80076; 82140; 85025; 85610; 85730; 86850; 86900; 86901; 96361; 96374; 96375; 96376; 99284; 99285; C9113; J1170; J2405; J2765